=== PATIENT | female | born 1940 ===

== ENCOUNTER 2021-05-20 15:19 | Inpatient (IN) | payer OTHER ==
[~2021-05-20] VITALS: Ht 165.1 cm; Wt 90.7 kg
== END 2021-05-31 18:29 | disposition home or self-care (01) | DRG 592 ==
LOC: ER 15:19 → MEDJ 05-21 12:30
PROVIDERS: ADMIT Internal Medicine; ATTEND Internal Medicine
PROC: 8E0ZXY6 Isolation (ICD-10-PCS; principal; 2021-05-21)
PROC: 4A033R1 Measurement of Arterial Saturation, Peripheral, Percutaneous Approach (ICD-10-PCS; 2021-05-21)
PROC: 4A12X4Z Monitoring of Cardiac Electrical Activity, External Approach (ICD-10-PCS; 2021-05-21)
PROC: XW033G6 Introduction of REGN-COV2 Monoclonal Antibody into Peripheral Vein, Percutaneous Approach, New Technology Group 6 (ICD-10-PCS; 2021-05-22)
PROC: 02HV33Z Insertion of Infusion Device into Superior Vena Cava, Percutaneous Approach (ICD-10-PCS; 2021-05-22)
PROC: 3E0F7SF Introduction of Other Gas into Respiratory Tract, Via Natural or Artificial Opening (ICD-10-PCS; 2021-05-22)
PROC: 3E0F7GC Introduction of Other Therapeutic Substance into Respiratory Tract, Via Natural or Artificial Opening (ICD-10-PCS; 2021-05-22)
PROC: 0HDNXZZ Extraction of Left Foot Skin, External Approach (ICD-10-PCS; 2021-05-29)
DX: L97.428 Non-pressure chronic ulcer of left heel and midfoot with other specified severity (principal); U07.1 COVID-19; G40.802 Other epilepsy, not intractable, without status epilepticus; J45.901 Unspecified asthma with (acute) exacerbation; Z20.822 Contact with and (suspected) exposure to COVID-19; F41.9 Anxiety disorder, unspecified; B96.5 Pseudomonas (aeruginosa) (mallei) (pseudomallei) as the cause of diseases classified elsewhere; I73.89 Other specified peripheral vascular diseases

== ENCOUNTER 2021-08-26 16:16 | Inpatient (IN) | payer OTHER ==
[~2021-08-26] VITALS: Ht 165.1 cm; Wt 124.7 kg
[2021-09-09] MEDS ORDERED: HYDROCORTISO453.6 G1 RECTAL (17:39)
[2021-09-09] MEDS ORDERED: CLOTRIMAZOLE-BE15 G1 TOP (17:39)
[2021-09-09] MEDS ORDERED: XOPENEX0.63 MG/3 IH (17:39)
[2021-09-09] MEDS ORDERED: MONTELUKAST SOD10 MG PO (17:39)
[2021-09-09] MEDS ORDERED: IPRATROPIU0.2 MG/1 M IH (17:39)
[2021-09-09] MEDS ORDERED: DILANTIN100 MG PO (17:39)
== END 2021-09-09 19:57 | disposition home or self-care (01) | DRG 580 ==
LOC: ER 16:16 → MEDJ 23:30
PROVIDERS: ADMIT Internal Medicine; ATTEND Internal Medicine
PROC: 3E0F7SF Introduction of Other Gas into Respiratory Tract, Via Natural or Artificial Opening (ICD-10-PCS; 2021-08-26)
PROC: 8E0ZXY6 Isolation (ICD-10-PCS; 2021-08-26)
PROC: 02HV33Z Insertion of Infusion Device into Superior Vena Cava, Percutaneous Approach (ICD-10-PCS; 2021-08-27)
PROC: 3E0F7GC Introduction of Other Therapeutic Substance into Respiratory Tract, Via Natural or Artificial Opening (ICD-10-PCS; 2021-08-27)
PROC: 0JBR3ZZ Excision of Left Foot Subcutaneous Tissue and Fascia, Percutaneous Approach (ICD-10-PCS; principal; 2021-08-28)
PROC: BQ2HZZZ Computerized Tomography (CT Scan) of Left Ankle (ICD-10-PCS; 2021-08-29)
PROC: 02HV33Z Insertion of Infusion Device into Superior Vena Cava, Percutaneous Approach (ICD-10-PCS; 2021-08-31)
PROC: CW1DLZZ Planar Nuclear Medicine Imaging of Lower Extremity using Gallium 67 (Ga-67) (ICD-10-PCS; 2021-08-31)
PROC: 0JBQ3ZZ Excision of Right Foot Subcutaneous Tissue and Fascia, Percutaneous Approach (ICD-10-PCS; 2021-09-04)
PROC: 0JBR3ZZ Excision of Left Foot Subcutaneous Tissue and Fascia, Percutaneous Approach (ICD-10-PCS; 2021-09-04)
DX: L89.620 Pressure ulcer of left heel, unstageable (principal); J45.22 Mild intermittent asthma with status asthmaticus; G40.802 Other epilepsy, not intractable, without status epilepticus; Z16.24 Resistance to multiple antibiotics; L97.528 Non-pressure chronic ulcer of other part of left foot with other specified severity; L08.89 Other specified local infections of the skin and subcutaneous tissue; K62.3 Rectal prolapse; I73.89 Other specified peripheral vascular diseases; K62.89 Other specified diseases of anus and rectum; E66.8 Other obesity; F41.8 Other specified anxiety disorders; B35.6 Tinea cruris; Z20.822 Contact with and (suspected) exposure to COVID-19; Z74.01 Bed confinement status

== ENCOUNTER 2022-10-22 15:34 | Inpatient (IN) | payer OTHER ==
[~2022-10-22] VITALS: Ht 154.9 cm; Wt 99.8 kg
[~2022-10-22 15:34] MED LIST: CLOTRIMAZOLE-BE15 G1 TOP; DILANTIN100 MG PO; HYDROCORTISO453.6 G1 RECTAL; IPRATROPIU0.2 MG/1 M IH; MONTELUKAST SOD10 MG PO; XOPENEX0.63 MG/3 IH
[2022-10-22] MEDS ORDERED: PEPCID AC20 MG (16:22)
[2022-10-22] MEDS ORDERED: FEROSUL (16:22)
[2022-10-22] MEDS ORDERED: GABAPENTIN100 MG (16:23)
[2022-11-01] MEDS ORDERED: IPRATROPIU0.2 MG/1 M IH (12:48)
[2022-11-01] MEDS ORDERED: XOPENEX0.63 MG/3 IH (12:48)
[2022-11-01] MEDS ORDERED: AMLODIPINE BESYL5 MG PO (12:49)
[2022-11-01] MEDS ORDERED: HYDRODIURIL12.5 MG PO (12:49)
[2022-11-01] MEDS ORDERED: FAMOTIDINE20 MG PO (12:50)
[2022-11-01] MEDS ORDERED: SECURA PROTECTI50 GM TOP (12:58)
== END 2022-11-01 14:10 | disposition home or self-care (01) | DRG 580 ==
LOC: ER 15:34 → MEDJ 22:29
PROVIDERS: ADMIT Internal Medicine; ATTEND Internal Medicine
PROC: 0JDR0ZZ Extraction of Left Foot Subcutaneous Tissue and Fascia, Open Approach (ICD-10-PCS; principal; 2022-10-22)
PROC: 3E0F7SF Introduction of Other Gas into Respiratory Tract, Via Natural or Artificial Opening (ICD-10-PCS; 2022-10-23)
PROC: 8E0ZXY6 Isolation (ICD-10-PCS; 2022-10-27)
PROC: 02HV33Z Insertion of Infusion Device into Superior Vena Cava, Percutaneous Approach (ICD-10-PCS; 2022-10-28)
PROC: 0JDR0ZZ Extraction of Left Foot Subcutaneous Tissue and Fascia, Open Approach (ICD-10-PCS; 2022-10-29)
DX: L97.528 Non-pressure chronic ulcer of other part of left foot with other specified severity (principal); E87.29 Other acidosis; M86.172 Other acute osteomyelitis, left ankle and foot; Z16.19 Resistance to other specified beta lactam antibiotics; J45.901 Unspecified asthma with (acute) exacerbation; L89.619 Pressure ulcer of right heel, unspecified stage; B96.89 Other specified bacterial agents as the cause of diseases classified elsewhere; R09.02 Hypoxemia; I73.9 Peripheral vascular disease, unspecified; G40.909 Epilepsy, unspecified, not intractable, without status epilepticus; K62.3 Rectal prolapse; Z74.01 Bed confinement status